=== PATIENT | male | born 1955 | race Caucasian/White ===

== ENCOUNTER → 2016-09-03 | Outpatient (CLI) | payer OTHER ==
[~2016-09-03] MED LIST: AMOX1TAB43 PO; CHLO4TAB70 PO; LORA10TA37 PO; LSN10 PO; MISCCAP80 PO; MULT-506 PO; NSNN50
== END | disposition home or self-care (01) ==
LOC: C.PATHSPEC 17:08
PROVIDERS: ATTEND Dermatology
DX: L82.1 Other seborrheic keratosis (principal)

== ENCOUNTER → 2017-10-23 | Outpatient (CLI) | payer OTHER ==
--- NOTE | 2017-10-24 06:39 | PAP/PSG TECHNICIAN REPORT ---
[facility] [place] [employer] Consultant Polysomnogram Report Study name: None Report date: 10/24/2017 Study date: 10/23/2017 Referring Physician: Antionette Elmore Name: DAVID LA Interpreting Physician: Elmer Lerma M.D. Date of : 1955 [employer] Consultant: Norma Ross RPS. Sex: Male Age: 62 Study Type: PSG PAP Weight: 173 lbs Height: 62 years, Height 5' 10" BMI: 24.82 Medications: BUPROPION 100 MG, MIRTAZAPINE 30 MG, SELENIUM SULFIDE 2.5% LOTION, ATENOLOL 25 MG, LISINOPRIL 10 MG, MOMETASONE FUROATE 50 MCG/ACT, CLONAZEPAM 0.5 MG, CHLOR-TRIMENTON 4 MG, MULTI VIT, PROBIOTIC, LORATIDINE 10 MG Patient History 62 yr-old male here for a CPAP update study. He will be switched to BIPAP if CPAP becomes too uncomfortable. He has been having trouble tolerating CPAP treatment. He complains of mask leak and high pressures. He is back to assess his pressure settings and YASSINE. He will try a different full face mask to find one that is comfortable. His Carver scale is 4. The test was started on room air and 4 CMH2O. ETCO2 testing was not utilized during this study. Room 1 Parameters Monitored NPSG: E1-M2, E2-M1, Fp1-M2, Fp2-M1, F3-M2, F4-M2, F4-M1, C3-M2, C4-M2, C4-M1, O1-M2, O2-M2, O2-M1, T3-M2, T4-M1, P3-M2, P4-M1, CHIN1, CHIN2, HR, EKG, Legs, PFLOW, SNOR, FLOW, CFLOW, Tidal Volume, THOR, ABDO, SpO2, PLTH, CPRESS, ETCO2 Wave, ETCO2, pH Sleep Architecture Sleep Stages Time at Lights Off 11:19:45 PM STAGES Time (min.) TST (%) Time at Lights On 5:51:15 AM Wake 54.5 -- Total Recording Time (TRT) 391.50 min. N1 72.0 21 Total Sleep Period (TSP) 382.5 min. N2 238.0 71 Total Sleep Time (TST) 337.0min. N3 0.0 0 Awake Time 54.5 min. REM 27.0 8 Wake after Sleep Onset 45.5 min. Sleep Efficiency (SE) 86 % Sleep Onset Latency (RYLIE) 9.0 min. Number of Stage 1 Shifts None Awakenings 21 Stage Changes 110 Number of REM periods 4 REM 27.0 8 REM Latency 136.5 min. NREM 310.0 92 Body Position Analysis Supine Right Left Side Prone Vertical Total Sleep Time (min.) 391.5 0.0 0.0 0.00 0.0 0.0 Total Sleep Time (%) 100% 0% 0% 0 0% N/A% Total Sleep Time REM (min.) 27.0 0.0 0.0 None 0.0 0.0 Total Sleep Time NREM (min.) 310.0 0.0 0.0 None 0.0 0.0 Intermittent Wake (min.) 54.5 0.0 0.0 None 0.0 0.0 Total Sleep Period (%) 100% None None None None None Arousals Myoclonus (PLM) * Events Count Index Events Count Index Spontaneous 54 10 Events Awake (PLMW) 48 52.8 Respiratory 21 4.5 Events Asleep w/ Arousal (PLMA) 0 0.0 PLM 0 0 Events Asleep w/o Arousal (PLMS) 17 3.0 Snoring 2 0 Total Asleep 17 3.0 Total 77 14 Total 65 10 Respiratory Analysis * CA OA MA CH H RERA Total Count 3 11 1 0 15 3 30 Index 0.5 2.0 0.2 0 2.7 1 5.9 Mean Duration 17.5 22.6 26.2 0.00 26.6 21.9 24.0 Longest Duration 21.7 31.7 26.2 0.00 26.2 24.9 37.3 Respiratory Event Summary Total Supine ~Supine Right Left Prone REM NREM Apneas Count 15 15 N/A N/A N/A N/A 0 15 Index 2.7 3 N/A N/A N/A N/A 0 3 Hypopneas (4% Desat) Count 15 15 N/A N/A N/A N/A 0 15 Index 2.7 2.7 N/A N/A N/A N/A 0.0 2.9 Apneas & All Hypopneas Count 30 30 N/A N/A N/A N/A 0 30 Index 5.3 5 N/A N/A N/A N/A 0.0 5.8 Respiratory Events (Unemployment Specialist+All Hyp+RERA) Count 30 33 N/A N/A N/A N/A 0 30 Index 5.9 6 N/A N/A N/A N/A 0.0 6.4 Respiratory Related Arousal Count 21 33 N/A N/A N/A N/A 0 25 Index 4.5 4 N/A N/A N/A N/A 0 5 Snoring Analysis Supine Right Left Prone REM NREM Total Snore duration 1.7 min Snores count 51 N/A N/A N/A 0 51 51 Snore mean duration 2.1 Sec Snores index 9 N/A N/A N/A 0.0 9.9 9.1 TST with snoring (%) 0.5% Desaturation Event Summary: Minimum %SpO2 Event Count Mean/Min/Max Duration(sec.) Desaturation Index % Time In Bed > 90 31 35.0 / 6.5 / 60.0 4.9 98.9 86 - 90 0 N/A 0.0 1.1 81 - 85 0 N/A 0.0 0.0 76 - 80 0 N/A 0.0 0.0 71 - 75 0 N/A 0.0 0.0 66 - 70 0 N/A 0.0 0.0 61 - 65 0 N/A 0.0 0.0 56 - 60 0 N/A 0.0 0.0 51 - 55 0 N/A 0.0 0.0 < 50 0 N/A 0.0 0.0 Total REM NREM Awake <50% 0.0 min. 0.0 min. 0.0 min. 0.0 min. 51 - 60% 0.0 min. 0.0 min. 0.0 min. 0.0 min. 61 - 70% 0.0 min. 0.0 min. 0.0 min. 0.0 min. 71 - 80% 0.0 min. 0.0 min. 0.0 min. 0.0 min. 81 - 90% 4.3 min. 0.0 min. 3.1 min. 1.3 min. 91 - 100% 378.2 min. 27.0 min. 307.0 min. 44.3 min. Average 95 96 95 95 Minimum SpO2 84 91 87 84 Desaturation Event Index 4.8 0.0 5.2 5.5 # Desat. Events below 89% 6 N/A 5 1 Time(%) with Saturation below 89% 0.4 0.0 0.2 0.2 Time(min.) with Saturation below 89% 1.6 0.0 0.9 0.7 Heart Rate Analysis Min (bpm) Max (bpm) Average (bpm) Awake 70 94 79 NREM 68 92 78 REM 70 87 80 Overall 68 92 78 Supplemental O2 Values Minimum O2 level: None Value Start Time End Time [employer] Consultant Comments Mr. La slept only in the supine position. No cardiac arrhythmias or PLMs noted. No bruxism noted. CPAP was initiated at +4 CMH2O and up-titrated to a level of +8 CMH2O, Cflex 2. Late into the study he was switched over to BiPAP at +10/6 CMH2O to see if it was more comfortable than CPAP. He seemed to have more respiratory events while on BiPAP than on CPAP. The pressure was then up-titrated to a level of +14/10 BiFlex 2. A Quattro Air full face mask size medium from [employer] was used during titration. He stated that this mask sealed and stayed put better than his usual mask which is a Quattro FX full face mask. He awoke to use the restroom one time during the night. Mr. La stated that he slept about the same as usual. The final report will be interpreted and signed by a sleep physician. The completed physician report will then be placed in the patient medical record. CPAP REPORT Therapy Detail Time / Page # Comment CPAP 4 cm H2O Full Face Mask Flex Pressure Relief Humidifier on 11:18:37 PM / pg. 252 CPAP 6 cm H2O Full Face Mask Flex Pressure Relief Humidifier on 11:55:52 PM / pg. 327 INCREASED FOR HYPOPNEAS CPAP 7 cm H2O Full Face Mask Flex Pressure Relief Humidifier on 2:05:22 AM / pg. 586 INCREASED FOR HYPOPNEAS CPAP 8 cm H2O Full Face Mask Flex Pressure Relief Humidifier on 4:27:06 AM / pg. 869 INCREASED FOR RERAS AND HYPOPNEAS BiLevel 10/6 cm H2O Full Face Mask Flex Pressure Relief Humidifier on 4:44:06 AM / pg. 903 SWITCHED TO BIPAP TO SEE IF IT WAS MORE COMFORTABLE THAN CPAP OF 8 BiLevel 12/8 cm H2O Full Face Mask Flex Pressure Relief Humidifier on 5:01:37 AM / pg. 938 INCREASED EPAP FOR OBSTRUCTIVE APNEAS AND INCREASED THE IPAP TO KEEP THE PRESSURE DIFFERENTIAL OF 4 CM BiLevel 14/10 cm H2O Full Face Mask Flex Pressure Relief Humidifier on 5:35:51 AM / pg. [phone] INCREASED EPAP FOR MORE OBSTRUCTIVE APNEAS AND INCREASED IPAP TO KEEP THE PRESSURE DIFFERENTIAL OF 4 CM Therapy Event: Therapy (cm H20) 4 6 7 8 106 128 14/10 Total Time at Pressure (min.) 36.1 129.5 141.7 17.0 17.5 34.2 15.4 TST at Pressure (min.) 26.1 124.5 115.7 11.1 12.4 31.7 15.4 # Periods 1 1 1 1 1 1 1 Sleep Onset (min.) 9.0 0.0 0.0 0.0 3.1 0.0 0.0 REM Onset (min.) N/A 109.4 62.9 N/A N/A 6.1 N/A Sleep Efficiency % 72 96 81 65 70 92 100 Wakefulness (%) 27.7 3.9 18.3 34.4 29.4 7.3 0.0 Wakefulness (min.) 10.0 5.0 26.0 5.9 5.1 2.5 0.0 NREM 1 (%) 31.8 7.3 15.5 17.6 67.8 37.2 9.0 NREM 1 (min.) 11.5 9.5 22.0 3.0 11.9 12.7 1.4 NREM 2 (%) 40.5 84.9 55.2 47.9 2.9 36.5 91.0 NREM 2 (min.) 14.6 110.0 78.2 8.1 0.5 12.5 14.0 NREM 3 (%) 0.0 0.0 0.0 0.0 0.0 0.0 0.0 NREM 3 (min.) 0.0 0.0 0.0 0.0 0.0 0.0 0.0 REM (%) 0.0 3.9 10.9 0.0 0.0 19.0 0.0 REM (min.) 0.0 5.0 15.5 0.0 0.0 6.5 0.0 # Arousals 7 17 23 6 8 14 2 Arousal Index 16.1 8.2 11.9 32.3 38.8 26.5 7.8 # Snore 8 25 8 3 4 2 1 Snore Index 18.4 12.0 4.1 16.1 19.4 3.8 3.9 AHI 9.2 1.9 1.6 26.9 34.0 9.4 7.8 AHI Supine 9.2 1.9 1.6 26.9 34.0 9.4 7.8 AHI Non-Supine N/A N/A N/A N/A N/A N/A N/A NREM AHI 9.2 2.0 1.8 26.9 34.0 11.9 7.8 REM AHI N/A 0.0 0.0 N/A N/A 0.0 N/A RDI 9.2 2.9 2.1 26.9 34.0 9.4 7.8 # Obstructive 1 2 0 0 3 3 2 # Central Ap 0 0 0 0 2 1 0 # Mixed 0 0 0 0 0 1 0 # Hypopneas 3 2 3 5 2 0 0 RERAS 0 2 1 0 0 0 0 Total Respiratory Events 4 6 4 5 7 5 2 Time Below SpO2 89.00% (min.) 0.0 0.0 0.0 0.0 0.2 0.2 0.4 Mean NREM SpO2 (%) 94 94 95 95 95 95 95 Mean REM SpO2 (%) N/A 95 96 N/A N/A 95 N/A Mean Sleep SpO2 (%) 94 94 95 95 95 95 95 Min NREM SpO2 (%) 89 88 91 89 87 87 87 Min REM SpO2 (%) N/A 93 91 N/A N/A 94 N/A Position Supine (min.) 26.1 124.5 115.7 11.1 12.4 31.7 15.4 Position Non-supine (min.) 0.0 0.0 0.0 0.0 0.0 0.0 0.0 LM Index Sleep 0.0 2.9 2.6 10.8 9.7 3.8 0.0 LM Index NREM 0.0 3.0 0.6 10.8 9.7 4.8 0.0 LM Index REM N/A 0.0 15.5 N/A N/A 0.0 N/A Mean Heart Rate (bpm) 80 81 78 77 74 75 75 Min Heart Rate (bpm) 75 75 69 71 69 68 70
== END | disposition home or self-care (01) ==
LOC: C.NEUR 21:00
PROVIDERS: ATTEND Nurse Practitioner Family
DX: G47.33 Obstructive sleep apnea (adult) (pediatric) (principal)